=== PATIENT | male | born 1970 | race Caucasian/White ===

== ENCOUNTER 2016-03-03 08:35 | Emergency (ER) | payer OTHER ==
--- NOTE | 2016-03-03 09:35 | DIAGNOSTIC IMAGING REPORT ---
PROCEDURE: XR ANKLE 3 OR 4 VIEWS - LEFT INDICATION: Ankle injury with lateral pain, initial encounter TECHNIQUE: Four views. COMPARISON: None. FINDINGS: Oblique fracture of the distal fibula with minor lateral displacement of the distal fragment. Normal ankle mortise. There is soft tissue swelling laterally IMPRESSION: 1. Minimally displaced fracture of the distal left fibula
--- NOTE | 2016-03-03 09:51 | DIAGNOSTIC IMAGING REPORT ---
PROCEDURE: XR FOOT 3 VIEWS - RIGHT INDICATION: PAIN TECHNIQUE: Three views. COMPARISON: None. FINDINGS: No fracture or dislocation. Mild first MTP joint degenerative changes. Soft tissues are unremarkable . IMPRESSION: 1. Mild first MTP degenerative changes
--- NOTE | 2016-03-03 10:31 | DIAGNOSTIC IMAGING REPORT ---
PROCEDURE: XR ANKLE 1 OR 2 VIEWS - LEFT INDICATION: TRAUMA/INJURY TECHNIQUE: Two views with gravity COMPARISON: None. FINDINGS: Oblique fracture of the distal fibula with minor lateral displacement of the distal fragment. Normal ankle mortise. There is soft tissue swelling laterally IMPRESSION: 1. Minimally displaced fracture of the distal left fibula
--- NOTE | 2016-03-03 13:24 | ED NURSING NOTES ---
Clinical Report - Nurses [facility] [address] [place] [address] 03/03/2016 8:39 [id number] TRI[facility] Triage time 08:47. Acuity: LEVEL 4. Chief Complaint: INJURY TO LEFT ANKLE. 08:48 03/03/16. 08:48 03/03/16. Alert. No acute distress. KIM COMA SCORE: Kim Coma Scale: 15- eyes open spontaneously (4); best verbal response- oriented x 4 (5); best motor response- obeys commands (6). --08:51 Isac Kent R.N. 08:47 03/03/16. BP: 152/100. HR: 110. RR: 20. O2 saturation: 100% on room air. Temp: 98.3 F (oral). --08:51 Isac Kent R.N. Chief Complaint: INJURY TO THE RIGHT FIFTH TOE and RIGHT FOOT. --08:54 Isac Kent R.N. Chief Complaint: INJURY TO LEFT ANKLE and RIGHT FOOT. --08:54 Isac Kent R.N. Weight: 108.8 kg stated. Height/Length: 71 inches Per Patient. BMI: 33.5. --08:48 Isac Kent R.N. Medications Albuterol Sulfate Inhalation. --08:50 Isac Kent R.N. ASA Oral. --08:50 Isac Kent R.N. Allergy Medication Oral. --08:51 Isac Kent R.N. Medication/allergy information source: the patient. --08:51 Isac Kent R.N. Allergies Shellfish-derived Products. --08:51 Isac Kent R.N. History Arrived by private vehicle. Historian: patient. Accompanied by family. Primary physician (Apr). 08:48 03/03/16. Occurred at home. Mechanism of injury: fell (down 6 stairs inside of house). Treatment CASING CREW: None. PAST MEDICAL HX: Tetanus status: up-to-date. Immunizations: up-to-date. SOCIAL HX: Smoker- current status unknown (10 years ago quit). No alcohol use or drug use. No infectious disease exposure. ABUSE ASSESSMENT: No report of abuse. FALL RISK ASSESSMENT: Fall risk assessment completed. No fall risk identified. NUTRITIONAL RISK ASSESSMENT: The nutritional risk assessment revealed no deficiencies. FUNCTIONAL ASSESSMENT: Functional assessment: no impairments noted. LEARNING NEEDS ASSESSMENT: The learning needs assessment revealed no barriers. SKIN INTEGRITY ASSESSMENT: Skin integrity risk assessment completed. No skin integrity risk identified. --08:51 Isac Kent R.N. PROBLEMS: Asthma. --08:51 Isac Kent R.N. ADDITIONAL SURGERIES: Appendectomy. --08:51 Isac Kent R.N. Assessment 08:48 03/03/16. --08:51 Isac Kent R.N. Interventions 08:48 03/03/16. 08:48 03/03/16. ID and allergy band on patient. To treatment room. --08:51 Isac Kent R.N. PHYSICAL ASSESSMENT 08:49 03/03/16. Ambulatory to room. GENERAL / NEURO / PSYCH: Oriented X 4. Alert. Appears in no acute distress. EXTREMITIES: Capillary refill is less than 2 seconds in the extremities. Neuro-vascular status intact to the extremity. Left ankle: tenderness. SKIN: Skin is warm and dry. --08:49 Isac Kent R.N. NURSING PROGRESS NOTES 08:52 03/03/16. The plan of care for this patient has been created. Cold pack applied. Extremity elevated. Neuro-vascular extremity check. Reassurance given. Two patient identifiers checked. Call light placed in reach. Side rails up x 2. Bed placed in lowest position. Brakes of bed on. Brakes of chair on. --08:52 Isac Kent R.N. 08:52 03/03/16. Patient ready for evaluation- chart flagged and notification provided. --08:52 Isac Kent R.N. 08:55 03/03/16. ( Pt c/o right foot injury and left ankle injury after falling down stairs). --08:55 Isac Kent R.N. 09:21 03/03/16. ( X-ray completed at bedside). --09:21 Isac Kent R.N. 09:37 03/03/16. Patient and family informed about reason for wait and about plan of care. --09:37 Isac Kent R.N. 09:37 03/03/16. Patient waiting for disposition. --09:37 Isac Kent R.N. 10:06 03/03/2016 Site #1 started via IV in the left hand with an 20g angiocath, with aseptic technique and good blood return; two attempts. Blood drawn: rainbow set. Labeled in the presence of the patient and sent to the lab. Saline lock flushed with 10 mL saline. --10:07 Isac Kent R.N. 10:09 03/03/16. ( X-ray at bedside). --10:09 Isac Kent R.N. 10:13 03/03/16. BP: 132/92. HR: 89. O2 saturation: 97%. --10:14 Farhana Hector, MELISSA Tech1 10:23 03/03/16. --10:23 Isac Kent R.N. 10:23 03/03/16. BP: 126/76. HR: 76. RR: 12. O2 saturation: 99% on room air. Pain level now: 0/10. --10:23 Isac Kent R.N. 10:23 03/03/16. Patient and family informed about reason for wait and about plan of care. --10:23 Isac Kent R.N. 10:24 03/03/16. Patient waiting for consult and (Ortho). --10:24 Isac Kent R.N. 10:24 03/03/16. ( X-ray completed at bedside). --10:24 Isac Kent R.N. 11:32 03/03/16. BP: 127/88. HR: 87. RR: 12. O2 saturation: 98% on room air. --11:32 Isac Kent R.N. 11:32 03/03/16. --11:32 Boardley, Isac, R.N. Stirrup posterior fiberglass lower extremity splint applied to left leg by tech. Distal pulses intact, sensation intact and motor within normal limits. --12:24 Alfa, Hermelinda Patient fit with new crutches. --12:28 Farhana Hector ER Tech1 13:27 03/03/2016 IV Saline Lock Drip IV Discontinued: bag #1 infused upon discharge. Total amount infused: 750 mL. IV patency established. IV site checked: no pain, redness, or swelling. IV flushed thoroughly. --13:32 Isac Kent R.N. DISPOSITION / DISCHARGE 13:26 03/03/2016 Site #1 removed upon discharge. Catheter intact. Pressure dressing and bandaid applied. --13:31 Isac Kent R.N. 13:32 03/03/16. Condition at departure: improved. The goals identified in the patient's plan of care were met. No learning barriers present. Discharge instructions provided and reviewed with the patient. Reviewed warnings. Reviewed medication(s). Treatments reviewed. Patient verbalized understanding. Written instructions provided in Vietnamese. The patient was discharged by the physician. He was discharged home and accompanied by family. He left the Emergency Department ambulatory and via private vehicle. Family member driving. FALL RISK ASSESSMENT: Fall risk assessment completed. No fall risk identified. --13:32 Isac Kent R.N. 13:31 03/03/16. BP: 124/72. HR: 80. RR: 14. O2 saturation: 100% on room air. Temp: 98.2 F (oral). --13:32 Isac Kent R.N. Reviewed referral to an orthopedic surgeon. --13:32 Isac Kent R.N. 13:32 03/03/16. Departure time: 13:32. --13:32 Isac Kent R.N. Locked/Released at 03/03/2016 13:49 by Isac Kent R.N.
--- NOTE | 2016-03-03 13:24 | ED ORDER SUMMARY ---
..... Patient: PAGE RACHEL OrderSheet [facility] VisitID: [id number] [place] [address] 45y, M Registration Date/Time: 03/03/2016 ORDER SHEET Weight: 108.8 kg (stated) Allergies: Shellfish-derived Products GENERAL ORDERS: Ankle 3 or 4V Left Urgent (08:52 03/03/2016 JBoardley R.N. per protocol) (Ack 8:56 LNations ER Tech1) (9:20 JBoardley R.N.) Foot 3V Right Urgent (08:54 03/03/2016 JBoardley R.N. per protocol) (Ack 8:56 LNations ER Tech1) (9:20 JBoardley R.N.) - (Davey Stress View) (09:50 03/03/2016 KWilliams R.N. verbal order read back to Shawna WALKER) (Ack 9:54 LNations ER Tech1) (Cancelled: Duplicate Order9:57 KWilliams R.N.) Ankle 2V Left (Davey stress test) Urgent (09:56 03/03/2016 KWilliams R.N. verbal order read back to Shawna WALKER) (10:22 JBoardley R.N.) Splint (LE) (Left) (Long Leg Posterior, Sugar Tong) (Fiberglass) (11:47 03/03/2016 Shawna WALKER) (Ack 11:55 NDouse ER Tech1) (12:14 NDouse ER Tech1) Crutches (11:48 03/03/2016 Shawna WALKER) (Ack 11:55 NDouse ER Tech1) (12:14 NDouse ER Tech1) MEDICATION ORDERS: IV FLUIDS: IV Saline Lock (10:06 03/03/2016 JBoardley R.N. verbal order read back to Shawna WALKER) (10:07 JBoardley R.N.) ORDER SHEET NOTES: [Electronically signed by Isac Kent R.N. (13:49 03/03/2016)] [Electronically signed by Malcolm Whitmore MD (01:52 03/11/2016)] [Electronically locked/signed by Isac Kent R.N. (13:49 03/03/2016)]
--- NOTE | 2016-03-03 13:24 | ED ORDER SUMMARY ---
..... Patient: PAGE RACHEL OrderSheet [facility] VisitID: [id number] [place] [address] 45y, M Registration Date/Time: 03/03/2016 ORDER SHEET Weight: 108.8 kg (stated) Allergies: Shellfish-derived Products GENERAL ORDERS: Ankle 3 or 4V Left Urgent (08:52 03/03/2016 JBoardley R.N. per protocol) (Ack 8:56 LNations ER Tech1) (9:20 JBoardley R.N.) Foot 3V Right Urgent (08:54 03/03/2016 JBoardley R.N. per protocol) (Ack 8:56 LNations ER Tech1) (9:20 JBoardley R.N.) - (Dillon Stress View) (09:50 03/03/2016 KWilliams R.N. verbal order read back to Shawna WALKER) (Ack 9:54 LNations ER Tech1) (Cancelled: Duplicate Order9:57 KWilliams R.N.) Ankle 2V Left (Dillon stress test) Urgent (09:56 03/03/2016 KWilliams R.N. verbal order read back to Shawna WALKER) (10:22 JBoardley R.N.) Splint (LE) (Left) (Long Leg Posterior, Sugar Tong) (Fiberglass) (11:47 03/03/2016 Shawna WALKER) (Ack 11:55 MAouse ER Tech1) (12:14 MAouse ER Tech1) Crutches (11:48 03/03/2016 Shawna WALKER) (Ack 11:55 MAouse ER Tech1) (12:14 MAouse ER Tech1) MEDICATION ORDERS: IV FLUIDS: IV Saline Lock (10:06 03/03/2016 JBoardley R.N. verbal order read back to Shawna WALKER) (10:07 JBoardley R.N.) ORDER SHEET NOTES: [Electronically signed by Isac Kent R.N. (13:49 03/03/2016)] [Electronically signed by Malcolm Whitomre MD (01:52 03/11/2016)] [Electronically locked/signed by Isac Kent R.N. (13:49 03/03/2016)]
--- NOTE | 2016-03-03 13:24 | ED CLINICAL REPORT ---
Clinical Report - Physicians/Mid Levels [facility] [address] [place] [address] 03/03/2016 8:39 [id number] Time Seen: 08:58. Arrived- By private vehicle. Historian- patient. HISTORY OF PRESENT ILLNESS Chief Complaint: Injury to the left ankle and right 5th (small) toe. The injury happened just prior to arrival. The patient sustained a twisting injury. Fell down several stairs; tripped. Occurred at home. Patient is experiencing moderate pain. Patient also notes injury to the right lower extremity (foot); (he struck his fifth toe). REVIEW OF SYSTEMS The patient has had new onset of swelling of the right 5th toe (mild) and left ankle (moderate). He has had new onset of pain-related weakness of the left ankle (severe). All systems otherwise negative, except as recorded above. PAST HISTORY Problems: Asthma. Additional Surgeries: Appendectomy. Medications: Allergy Medication Oral. ASA Oral. Albuterol Sulfate Inhalation. Allergies: Shellfish-derived Products. SOCIAL HISTORY Former smoker. No alcohol use or drug use. FAMILY HISTORY No significant family medical history. ADDITIONAL NOTES The nursing notes have been reviewed. PHYSICAL EXAM Vital Signs: 03/03/2016 08:47 BP: 152/100. HR: 110. RR: 20. O2 saturation: 100%. Temp: 98.3 F. Have been reviewed. Appearance: Alert. Head: Head atraumatic. Eyes: Pupils equal, round and reactive to light. ENT: Pharynx normal. Neck: Normal inspection. Neck supple. CVS: Normal heart rate and rhythm. Heart sounds normal. Respiratory: No respiratory distress. Breath sounds normal. Abdomen: No visible injury. Soft and nontender. Bowel sounds normal. No organomegaly. No mass. Back: Normal inspection. Skin: Skin intact. Skin warm and dry. Extremities: Left ankle: moderate tenderness and swelling. Limited ROM secondary to pain. Neurovascular intact distally. No ligamentous laxity present. No deformity. Right fifth toe: moderate tenderness. Gait: Gait not tested due to pain. LABS, X-RAYS, AND EKG X-Rays: Right foot negative. Lt Ankle X-ray: (IMPRESSION: 1. Minimally displaced fracture of the distal left fibula). The X-rays were interpreted by the radiologist and contemporaneously by me. Post procedure films. Note - Tests: (PROCEDURE: XR ANKLE 1 OR 2 VIEWS - LEFT INDICATION: TRAUMA/INJURY TECHNIQUE: Two views with gravity COMPARISON: None. FINDINGS: Oblique fracture of the distal fibula with minor lateral displacement of the distal fragment. Normal ankle mortise. There is soft tissue swelling laterally IMPRESSION: 1. Minimally displaced fracture of the distal left fibula). PROGRESS AND PROCEDURES Course of Care: Patient is stable. Consult obtained from orthopedics. Tyson. Case discussed. Consultation performed in ED. Patient/family counseled. Old medical records ordered. Old records unavailable. Disposition: Discharged. Condition: stable. CLINICAL IMPRESSION Closed left lateral malleolus fracture. Single contusion to the right 5th toe. INSTRUCTIONS Apply ice for 20 minutes four times a day until better. Don't apply ice directly to skin and don't use while asleep. Use crutches. Wear fiberglass splint until released. No driving or operating machinery while taking medication. Sedative medication was given during your visit. No weight bearing. Warnings: COMPLICATIONS: Complications from this condition include: possible injury to a nerve, possible injury to a tendon and possible injury to a ligament. Future problems may include scarring, loss of function, pain, deformity and poor fracture healing. It is important to follow up with a physician for further evaluation and treatment. GENERAL WARNINGS: Return or contact your physician immediately if your condition worsens or changes unexpectedly, if not improving as expected, or if other problems arise. Prescription Medications: Hydrocodone/APAP 5mg/325mg: take 1 to 2 orally every 6 hours as needed for pain. Dispense fifteen (15). No refills. Understanding of the discharge instructions verbalized by patient. Follow-up with: Josué Macdonald M.D., Orthopedic Surgeon, , [address], [facility] [place], [address] Follow up in three days. Call for the next available appointment. (Electronically signed by Malcolm Whitmore MD 03/11/2016 1:52)
--- NOTE | 2016-03-03 13:24 | ED CLINICAL REPORT ---
Clinical Report - Physicians/Mid Levels [facility] [address] [place] [address] 03/03/2016 8:39 [id number] Time Seen: 08:58. Arrived- By private vehicle. Historian- patient. HISTORY OF PRESENT ILLNESS Chief Complaint: Injury to the left ankle and right 5th (small) toe. The injury happened just prior to arrival. The patient sustained a twisting injury. Fell down several stairs; tripped. Occurred at home. Patient is experiencing moderate pain. Patient also notes injury to the right lower extremity (foot); (he struck his fifth toe). REVIEW OF SYSTEMS The patient has had new onset of swelling of the right 5th toe (mild) and left ankle (moderate). He has had new onset of pain-related weakness of the left ankle (severe). All systems otherwise negative, except as recorded above. PAST HISTORY Problems: Asthma. Additional Surgeries: Appendectomy. Medications: Allergy Medication Oral. ASA Oral. Albuterol Sulfate Inhalation. Allergies: Shellfish-derived Products. SOCIAL HISTORY Former smoker. No alcohol use or drug use. FAMILY HISTORY No significant family medical history. ADDITIONAL NOTES The nursing notes have been reviewed. PHYSICAL EXAM Vital Signs: 03/03/2016 08:47 BP: 152/100. HR: 110. RR: 20. O2 saturation: 100%. Temp: 98.3 F. Have been reviewed. Appearance: Alert. Head: Head atraumatic. Eyes: Pupils equal, round and reactive to light. ENT: Pharynx normal. Neck: Normal inspection. Neck supple. CVS: Normal heart rate and rhythm. Heart sounds normal. Respiratory: No respiratory distress. Breath sounds normal. Abdomen: No visible injury. Soft and nontender. Bowel sounds normal. No organomegaly. No mass. Back: Normal inspection. Skin: Skin intact. Skin warm and dry. Extremities: Left ankle: moderate tenderness and swelling. Limited ROM secondary to pain. Neurovascular intact distally. No ligamentous laxity present. No deformity. Right fifth toe: moderate tenderness. Gait: Gait not tested due to pain. LABS, X-RAYS, AND EKG X-Rays: Right foot negative. Lt Ankle X-ray: (IMPRESSION: 1. Minimally displaced fracture of the distal left fibula). The X-rays were interpreted by the radiologist and contemporaneously by me. Post procedure films. Note - Tests: (PROCEDURE: XR ANKLE 1 OR 2 VIEWS - LEFT INDICATION: TRAUMA/INJURY TECHNIQUE: Two views with gravity COMPARISON: None. FINDINGS: Oblique fracture of the distal fibula with minor lateral displacement of the distal fragment. Normal ankle mortise. There is soft tissue swelling laterally IMPRESSION: 1. Minimally displaced fracture of the distal left fibula). PROGRESS AND PROCEDURES Course of Care: Patient is stable. Consult obtained from orthopedics. Tyson. Case discussed. Consultation performed in ED. Patient/family counseled. Old medical records ordered. Old records unavailable. Disposition: Discharged. Condition: stable. CLINICAL IMPRESSION Closed left lateral malleolus fracture. Single contusion to the right 5th toe. INSTRUCTIONS Apply ice for 20 minutes four times a day until better. Don't apply ice directly to skin and don't use while asleep. Use crutches. Wear fiberglass splint until released. No driving or operating machinery while taking medication. Sedative medication was given during your visit. No weight bearing. Warnings: COMPLICATIONS: Complications from this condition include: possible injury to a nerve, possible injury to a tendon and possible injury to a ligament. Future problems may include scarring, loss of function, pain, deformity and poor fracture healing. It is important to follow up with a physician for further evaluation and treatment. GENERAL WARNINGS: Return or contact your physician immediately if your condition worsens or changes unexpectedly, if not improving as expected, or if other problems arise. Prescription Medications: Hydrocodone/APAP 5mg/325mg: take 1 to 2 orally every 6 hours as needed for pain. Dispense fifteen (15). No refills. Understanding of the discharge instructions verbalized by patient. Follow-up with: Josué Macdonald M.D., Orthopedic Surgeon, , [address], [facility], [address] Follow up in three days. Call for the next available appointment. (Electronically signed by Malcolm Whitmore MD 03/11/2016 1:52)
--- NOTE | 2016-03-11 01:53 | ED MAR SUMMARY ---
..... Medication Administration Record [facility] [address] [place], [place] [id number] Patient: WILSON PAGE James Visit ID: [id number] 45y, M Weight: 108.8 kg Height/Length: 71 in BMI: 33.5 ALLERGIES: Shellfish-derived Products
--- NOTE | 2016-03-11 01:53 | ED MED RECONCILIATION SUMMARY ---
Patient: PAGE RACHEL Medication Reconciliation Report [facility] VisitID: [id number] [address] [place] [address] 45y, M Registration Date/Time: 03/03/2016 Weight: 108.8 kg Height/Length: 71 in. BMI: 33.5 ALLERGIES: Shellfish-derived Products The patient's Home Medications are listed below: THE FOLLOWING MEDICATIONS NEED TO BE RECONCILED: Albuterol Sulfate Inhalation Allergy Medication Oral ASA Oral The source(s) of the original Home Medication information: patient The following Medications were given to the patient in the Emergency Department: None. The following Medications were prescribed to the patient: Hydrocodone/APAP 5mg/325mg: take 1 to 2 orally every 6 hours as needed for pain. Dispense fifteen (15). No refills. -- Malcolm Whitmore MD
--- NOTE | 2016-03-11 01:53 | ED MAR SUMMARY ---
..... Medication Administration Record [facility] [address], [place] [id number] Patient: WILSON PAGE James Visit ID: [id number] 45y, M Weight: 108.8 kg Height/Length: 71 in BMI: 33.5 ALLERGIES: Shellfish-derived Products
--- NOTE | 2016-03-11 01:53 | ED MED RECONCILIATION SUMMARY ---
Patient: PAGE RACHEL Medication Reconciliation Report [facility] VisitID: [id number] [address] [place] [address] 45y, M Registration Date/Time: 03/03/2016 Weight: 108.8 kg Height/Length: 71 in. BMI: 33.5 ALLERGIES: Shellfish-derived Products The patient's Home Medications are listed below: THE FOLLOWING MEDICATIONS NEED TO BE RECONCILED: Albuterol Sulfate Inhalation Allergy Medication Oral ASA Oral The source(s) of the original Home Medication information: patient The following Medications were given to the patient in the Emergency Department: None. The following Medications were prescribed to the patient: Hydrocodone/APAP 5mg/325mg: take 1 to 2 orally every 6 hours as needed for pain. Dispense fifteen (15). No refills. -- Malcolm Whitmore MD
--- NOTE | 2016-03-11 01:53 | ED DISCHARGE INSTRUCTIONS ---
Patient: PAGE RACHEL General Instructions [facility] VisitID: [id number] [address], [place] [address] 45y, M Registration Date/Time: 03/03/2016 Closed left lateral malleolus fracture. Single contusion to the right 5th toe. INSTRUCTIONS Apply ice for 20 minutes four times a day until better. Don't apply ice directly to skin and don't use while asleep. Use crutches. Wear fiberglass splint until released. No driving or operating machinery while taking medication. Sedative medication was given during your visit. No weight bearing. Warnings: COMPLICATIONS: Complications from this condition include: possible injury to a nerve, possible injury to a tendon and possible injury to a ligament. Future problems may include scarring, loss of function, pain, deformity and poor fracture healing. It is important to follow up with a physician for further evaluation and treatment. GENERAL WARNINGS: Return or contact your physician immediately if your condition worsens or changes unexpectedly, if not improving as expected, or if other problems arise. Prescription Medications: Hydrocodone/APAP 5mg/325mg: take 1 to 2 orally every 6 hours as needed for pain. Dispense fifteen (15). No refills. Understanding of the discharge instructions verbalized by patient. Follow-up with: Josué Macdonald M.D., Orthopedic Surgeon, , [address] [place] [address] Follow up in three days. Call for the next available appointment. ADDITIONAL INFORMATION Contusion: Foot You have a CONTUSION of your foot. This causes local pain, swelling and sometimes bruising. There are no broken bones. This injury may take from a few days to a few weeks to heal. Home Care: 1) Keep your LEG elevated to reduce pain and swelling. This is very important during the first 48 hours. If walking causes pain, stay off the injured leg until you can walk without pain. 2) If CRUTCHES have been advised, do not bear full weight on the injured leg until you can do so without pain. You may return to sports when you are able to hop and run on the injured leg without pain. 3) Make an ice pack (ice cubes in a plastic bag, wrapped in a towel) and apply for 20 minutes every 1-2 hours the first day. Continue this 3-4 times a day until the swelling goes down. 4) You may use acetaminophen (Tylenol) or ibuprofen (Motrin, Advil) to control pain, unless another pain medicine was prescribed. [ NOTE : If you have chronic liver or kidney disease or ever had a stomach ulcer or GI bleeding, talk with your doctor before using these medicines.] Follow Up with your doctor or this facility if you are not starting to improve within the next THREE days. [NOTE: If X-rays were taken, they will be reviewed by a radiologist. You will be notified of any new findings that may affect your care.] Get Prompt Medical Attention if any of the following occur: -- Pain or swelling increases -- Toes become cold, blue, numb or tingly -- Redness, warmth or drainage from the skin Fracture,Ankle, Distal Fibula You have a fracture (broken bone) of the end of the fibula bone. This is one of two bones that support the ankle joint. Home Care: You will be given a splint, cast or special boot to prevent movement at the site of injury. Do not put weight on a splint; it will break. Follow your doctor's advice regarding when to begin bearing weight on a cast or boot. Keep your leg elevated when sitting or lying down. When sleeping, place a pillow under the injured leg. When sitting, support the injured leg so it is level with your waist. This is very important during the first 48 hours. Keep the cast/splint completely dry at all times. When bathing, protect the cast/splint with a large plastic bag, rubber-banded at the top end. If a fiberglass cast or splint gets wet, you can dry it with a hair-dryer. Place an ice pack (ice cubes in a plastic bag, wrapped in a towel) on the splint/cast over the injured area for 20 minutes every 2 hours during the first day.You can place the ice pack directly over the splint/cast. Continue this 3-4 times a day for the next two days. You may use acetaminophen (Tylenol) or ibuprofen (Motrin, Advil) to control pain, unless another pain medicine was prescribed. [NOTE: If you have chronic liver or kidney disease or ever had a stomach ulcer or GI bleeding, talk with your doctor before using these medicines.] Follow Up with your doctor in one week, or as advised by our staff, to be sure the bone is healing properly. If you were given a splint, it may be changed to a cast after the swelling goes down. [NOTE: A radiologist will review any X-rays that were taken. We will notify you of any new findings that may affect your care.] Get Prompt Medical Attention if any of the following occur: The plaster cast or splint becomes wet or soft The fiberglass cast or splint remains wet for more than 24 hours Increased tightness or pain under the cast or splint Toes become swollen, cold, blue, numb or tingly Crutch Walking Crutch Adjustment Make sure the crutches you use are adjusted to fit you. When you stand, there should be room to fit 2-3 fingers between the top of the crutch and your armpit. Your elbow should be slightly bent when holding the hand warehouse logistics coordinator. Crutch Walking: Place the crutches forward 12" in front of and 6" to the side of your feet. Lean your weight forward as you push down on the handgrips. Your weight should be on your hands and yourstrong leg, not your armpits . Let your body swing through, landing on the strong leg. Advance the crutches forward again. The crutch and the injured leg should move together. Going Up Steps: ("Up with the good") With both crutches on the same step as your feet, push down on the handgrips. Balancing with very light pressure on the weak leg, let your hands support your weight as you raise your strong leg onto the next higher step. Transfer all your weight to your strong leg (still bent) as you move the crutches up to the next step alongside the strong leg. With your weight evenly balanced on the two crutches and your strong leg, straighten your strong knee as you raise the weak leg up to the next step. Going Down Steps: ("Down with the bad") With both crutches on the same step as your feet, push down on the handgrips. With your weight evenly balanced on the two crutches and your strong leg, bend your strong knee as you lower the weak leg down to the next step. Let your strong leg support you (still bent) as you move the crutches down alongside the weak leg. Transfer your weight to your hands, balancing with very light pressure on the weak leg as you lower your strong leg alongside your weak leg. Splint Care, Fiberglass The following will help you care for your splint: It will take up totwo hours for your fiber glass splint to fully harden; therefore, do notapply any pressure on it during that time or else it may break. To prevent swelling under the splint, for thefirst 48 hours: If the splint is on yourarm, keep it in a sling or raised to shoulder level when sitting or standing; rest it on your chest or on a pillow at your side when lying down. If the splint is on yourfoot, keep it propped up above the level of your waist when sitting or lying. Avoid crutch walking as much as possible during this time. Keep the splint/cast dry at all times. Bathe with your splint/cast well out of the water, protected with a large plastic bag, rubber-banded at the top end. If a fiberglass cast or splint gets wet, you can dry it with a hair-dryer. Follow-up care Follow up with your doctor or this facility as advised. When to seek medical care Get prompt medical attention if any of the following occur: Bad odor from the splint or wound-fluid stains the splint The splint cracks or remains wet over 24 hours Increasing tightness or pressure under the splint Fingers or toes become swollen, cold, blue, numb or tingly Increased pain under the splint Hydrocodone Bitartrate, Acetaminophen Oral tablet What is this medicine? ACETAMINOPHEN; HYDROCODONE (a set a SAMM luis fen; lottie droe KOE done) is a pain reliever. It is used to treat mild to moderate pain. How should I use this medicine? Take this medicine by mouth. Swallow it with a full glass of water. Follow the directions on the prescription label. If the medicine upsets your stomach, take the medicine with food or milk. Do not take more than you are told to take. Talk to your residential air sealing technician regarding the use of this medicine in children. This medicine is not approved for use in children. What side effects may I notice from receiving this medicine? Side effects that you should report to your doctor or health health care attorney as soon as possible: allergic reactions like skin rash, itching or hives, swelling of the face, lips, or tongue breathing problems confusion feeling faint or lightheaded, falls stomach pain yellowing of the eyes or skin Side effects that usually do not require medical attention (report to your doctor or health health care attorney if they continue or are bothersome): nausea, vomiting stomach upset What may interact with this medicine? alcohol antihistamines isoniazid medicines for depression, anxiety, or psychotic disturbances medicines for sleep muscle relaxants naltrexone narcotic medicines (opiates) for pain phenobarbital ritonavir tramadol What if I miss a dose? If you miss a dose, take it as soon as you can. If it is almost time for your next dose, take only that dose. Do not take double or extra doses. Where should I keep my medicine? Keep out of the reach of children. This medicine can be abused. Keep your medicine in a safe place to protect it from theft. Do not share this medicine with anyone. Selling or giving away this medicine is dangerous and against the law. Store at room temperature between 15 and 30 degrees C (59 and 86 degrees F). Protect from light. Keep container tightly closed. Throw away any unused medicine after the expiration date. Discard unused medicine and used packaging carefully. Pets and children can be harmed if they find used or lost packages. What should I tell my health care provider before I take this medicine? They need to know if you have any of these conditions: brain tumor Crohn's disease, inflammatory bowel disease, or ulcerative colitis drink more than 3 alcohol-containing drinks per day drug abuse or addiction head injury heart or circulation problems kidney disease or problems going to the bathroom liver disease lung disease, asthma, or breathing problems an unusual or allergic reaction to acetaminophen, hydrocodone, other opioid analgesics, other medicines, foods, dyes, or preservatives or trying to get breast-feeding What should I watch for while using this medicine? Tell your doctor or health health care attorney if your pain does not go away, if it gets worse, or if you have new or a different type of pain. You may develop tolerance to the medicine. Tolerance means that you will need a higher dose of the medicine for pain relief. Tolerance is normal and is expected if you take the medicine for a long time. Do not suddenly stop taking your medicine because you may develop a severe reaction. Your body becomes used to the medicine. This does NOT mean you are addicted. Addiction is a behavior related to getting and using a drug for a non-medical reason. If you have pain, you have a medical reason to take pain medicine. Your doctor will tell you how much medicine to take. If your doctor wants you to stop the medicine, the dose will be slowly lowered over time to avoid any side effects. You may get drowsy or dizzy when you first start taking the medicine or change doses. Do not drive, use machinery, or do anything that may be dangerous until you know how the medicine affects you. Stand or sit up slowly. There are different types of narcotic medicines (opiates) for pain. If you take more than one type at the same time, you may have more side effects. Give your health care provider a list of all medicines you use. Your doctor will tell you how much medicine to take. Do not take more medicine than directed. Call emergency for help if you have problems breathing. The medicine will cause constipation. Try to have a bowel movement at least every 2 to 3 days. If you do not have a bowel movement for 3 days, call your doctor or health health care attorney. Too much acetaminophen can be very dangerous. Do not take Tylenol (acetaminophen) or medicines that contain acetaminophen with this medicine. Many non-prescription medicines contain acetaminophen. Always read the labels carefully. You have been given the following additional information: Contusion, Foot Ankle Fracture (Distal Fibula), Closed Crutch Walking Splint Care, Fiberglass Hydrocodone Bitartrate, Acetaminophen Oral tablet No driving or operating machinery while taking medication. Sedative medication was given during your visit. No weight bearing. (Electronically signed by Malcolm Whitmore MD 03/11/2016 1:52)
== END 2016-03-03 13:32 | disposition home or self-care (01) ==
LOC: ED SRH 08:35
DX: S82.62XA Displaced fracture of lateral malleolus of left fibula, initial encounter for closed fracture (principal); S90.121A Contusion of right lesser toe(s) without damage to nail, initial encounter; W10.9XXA Fall (on) (from) unspecified stairs and steps, initial encounter; Y93.9 Activity, unspecified; Y92.009 Unspecified place in unspecified non-institutional (private) residence as the place of occurrence of the external cause; Z79.82 Long term (current) use of aspirin